=== PATIENT | female | born 1970 | race Caucasian/White ===

== ENCOUNTER → 2017-08-22 08:56 | Outpatient (CLI) | payer OTHER, SELFPAY ==
[2017-08-22 13:38] LABS: HIV - WCH Non-Reactive (Nonreactive)
[2017-08-22 19:15] LABS: Chlamydia Trachomatis by PCR Negative (Negative); Neisserai gonorrhoeae by PCR Negative (Negative); Probe Check PASS; Sample Adequacy Control PASS; Specimen Processing Control PASS
[2017-08-24 07:08] LABS: Rapid Plasmin Reagin (RPR) NONREACTIVE (NONREACTIVE)
== END ==
PROVIDERS: Visit Provider Nurse Practitioner Women's Health
DX: Z12.4 Encounter for screening for malignant neoplasm of cervix (principal); Z11.3 Encounter for screening for infections with a predominantly sexual mode of transmission
CPT/HCPCS: 86592; 86695; 86696; 86703; 87491; 87521; 87591

== ENCOUNTER → 2017-09-20 08:53 | Outpatient (CLI) | payer OTHER, SELFPAY ==
--- NOTE | 2017-09-20 08:57 | HPBI_ITS ---
MAMMOGRAPHY - BILATERAL SCREENING 3-D TRINA SYNTHESIS REASON FOR EXAM: Female, 47 years old. Bilateral Screening 3-D tomosynthesis PERTINENT HISTORY: Asymptomatic. Patient reports weight gain. No significant family history. TECHNIQUE: 2-D mammograms and 3-D Trina synthesis of the breast (s) were performed. CAD was performed. COMPARISON: 08/07/2015 and 09/27/2013 digital mammograms from [place], [place]. FINDINGS: The breast composition is composed of scattered fibroglandular density. Scattered benign calcifications are seen. No dense spiculated masses, abnormal microcalcification cluster, dominant mass, architectural distortion or adenopathy is identified. There is no skin thickening or nipple retraction. There has been no significant change since the prior study. HPBI/SCREENING MAMM (CAD), BILAT IMPRESSION: No mammographic signs of malignancy. Routine yearly mammograms recommended. ASSESSMENT CATEGORY: BIRADS Category 2: Benign. A letter regarding these results will be sent to the patient by the facility within 30 days. FOLLOW UP RECOMMENDATION: Yearly follow up mammogram recommended. (A) Approximately 10% of breast cancers are not detected by mammography. A normal mammogram should not delay biopsy of a clinically suspicious abnormality. Electronically Signed: Juan Carlos Rivera, at 22:03 EDT Tel , Service support ,
== END ==
PROVIDERS: Family Provider Family Medicine; PCP Family Medicine; Visit Provider Nurse Practitioner Women's Health
DX: Z12.31 Encounter for screening mammogram for malignant neoplasm of breast (principal)
CPT/HCPCS: 77063; 77067